=== PATIENT | female | born 1995 | race African-American/Black ===

== ENCOUNTER 2020-03-03 16:35 | Emergency (ER) | payer MEDICAID ==
[2020-03-03 16:42] VITALS: BP 125/73
--- NOTE | 2020-03-03 16:48 | ER Document Report ---
ED Fall - General Chief Complaint: Ankle Injury Stated Complaint: ANKLE INJURY/PAIN Time Seen by Provider: 03/03/20 16:41 Primary Care Provider: KIZZY HERNANDEZ JR, DO [ACTIVE PROVISIONAL STAFF] - Follow up as needed - HPI Notes: 24-year-old female presents to ED for evaluation of slip and fall with left ankle pain sustained earlier today. Patient reports that she was running when she slipped on stairs that were wet. Patient reports she had slides on and believes that caught on the stairs. Patient notes pain to the lateral aspect of the ankle. Denies radiation of pain into the foot or up into the knee. Patient denies any paresthesias or other injuries. Reports increased pain with ambulation weightbearing. - Related data Allergies/Adverse Reactions: No Known Allergies Allergy (Unverified 03/03/20 16:46) Past Medical History - Social History Smoking Status: Unknown if Ever Smoked Family History: None Review of Systems - Review of Systems Notes: Constitutional: Negative for fever. HENT: Negative for sore throat. Eyes: Negative for visual changes. Cardiovascular: Negative for chest pain. Respiratory: Negative for shortness of breath. Gastrointestinal: Negative for abdominal pain, vomiting or diarrhea. Genitourinary: Negative for dysuria. Musculoskeletal: Negative for back pain. + for ankle and joint pain. Skin: Negative for rash. Neurological: Negative for headaches, weakness or numbness. 10 point ROS negative except as marked above and in HPI. Physical Exam - Vital signs Vitals: Temp Pulse Resp BP Pulse Ox 99 F 81 20 125/73 100 03/03/20 16:41 03/03/20 16:41 03/03/20 16:41 03/03/20 16:41 03/03/20 16:41 General: No apparent distress. Alert and oriented x 3. Skin: Intact without any jaundice, pallor, or erythema. Warm and dry. Musculoskeletal: Left Ankle No erythema, ecchymosis, rashes, or deformity. Minor swelling and tenderness to palpation over the lateral malleolus and the ATFL. FROM with discomfort with dorsiflexion. Great toe strength is intact. No tenderness to palpation at the base of the 5th MT or the knee. No calf tenderness. All toes are warm and mobile with brisk capillary refill. 2+ Dorsalis pedis pulse. Neuro: GCS 15. Course - Re-evaluation Re-evalutation: 03/03/20 18:34 24-year-old female presents to ED for evaluation of left ankle injury. Patient was evaluated with x-rays of the ankle. Xrays were negative for fracture or dislocation. Imaging was discussed with patient. Patient is advised that soft tissue injury or ligamentous tear cannot be ruled out. Patient is advised to rest, ice and elevate the extremity. Apply ice to the affected area 20 minutes on, 20 minutes off throughout the day. Given an Aircast and crutches to be nonweightbearing. Patient is given a prescription for naproxen. Patient is given a referral to orthopedics for follow up. Understands indications to return to ED. Understands treatment plan. Patient is in agreement. - Vital Signs Vital signs: Temp Pulse Resp BP Pulse Ox 99 F 81 20 125/73 100 03/03/20 16:41 03/03/20 16:41 03/03/20 16:41 03/03/20 16:41 03/03/20 16:41 - Laboratory Results Critical Laboratory Results Reviewed: No Critical Results - Radiology Results Critical Radiology Results Reviewed: No Critical Results Discharge - Discharge Clinical Impression: Left ankle sprain Qualifiers: Encounter type: initial encounter Involved ligament of ankle: other ligament Qualified Code(s): S93.492A - Sprain of other ligament of left ankle, initial encounter Condition: Stable Disposition: HOME, SELF-CARE Instructions: Ankle Stirrup Splint ([facility]), Use of Crutches ([facility]), Sprained Ankle ([facility]) Prescriptions: Naproxen 500 mg PO BID PRN #14 tablet PRN Reason: Forms: Return to Work Referrals: KIZZY HERNANDEZ JR, [ACTIVE PROVISIONAL STAFF] - Follow up as needed
--- NOTE | 2020-03-03 17:23 | RADIOLOGY REPORT (SQ) ---
EXAM DESCRIPTION: ANKLE LEFT COMPLETE IMAGES COMPLETED DATE/TIME: 03/03/2020 5:07 pm REASON FOR STUDY: fall COMPARISON: None. NUMBER OF VIEWS: Three views. TECHNIQUE: AP, lateral, and oblique radiographic images acquired of the left ankle. LIMITATIONS: None. FINDINGS: MINERALIZATION: Normal. BONES: No acute fracture or dislocation. No worrisome bone lesions. JOINTS: No effusions. SOFT TISSUES: No soft tissue swelling. No foreign body. OTHER: No other significant finding. IMPRESSION: NEGATIVE STUDY OF THE LEFT ANKLE. NO RADIOGRAPHIC EVIDENCE OF ACUTE INJURY. TECHNICAL DOCUMENTATION: JOB ID: [id number] 2010 [employer]- All Rights Reserved Reading location - IP/workstation name: [email or web address]
== END 2020-03-03 18:38 | disposition home or self-care (01) ==
LOC: ER 16:35
DX: S93.402A Sprain of unspecified ligament of left ankle, initial encounter (principal); W10.9XXA Fall (on) (from) unspecified stairs and steps, initial encounter; Y93.02 Activity, running
CPT/HCPCS: 99283